=== PATIENT | female | born 1990 | race Caucasian/White ===

== ENCOUNTER 2018-08-20 10:20 | Emergency (ER) | payer OTHER ==
[2018-08-20] MEDS: ONDANSETRON (ODT) 4 MG TAB ODT (12:56)
[2018-08-20 13:03] LABS: URINE BLOOD (Dip) POC Trace-intact (NEGATIVE); URINE GLUCOSE (Dip) POC Negative (NEGATIVE); URINE KETONES (Dip) POC Negative (NEGATIVE); URINE LEUKOCYTE EST (Dip) POC Negative (NEGATIVE); URINE NITRITE (Dip) POC Negative (NEGATIVE); URINE TOTAL PROTEIN POC 1+ (NEGATIVE)
[2018-08-20 13:03] LABS: URINE PH (Dip) POC 8.5 (5.0-8.5)
== END 2018-08-20 13:51 | disposition home or self-care (01) ==
LOC: FTE 10:20
DX: K52.9 Noninfective gastroenteritis and colitis, unspecified (principal)
CPT/HCPCS: 81003; 81025; 99283